=== PATIENT | female | born 1950 | race Caucasian/White ===

== ENCOUNTER → 2019-05-25 15:59 | Outpatient (BNVA) | payer MEDICARE, MEDICAID, SELFPAY | PROVIDERS: PCP Family Medicine; Visit Provider Nurse Practitioner Family | DX: R10.9 Unspecified abdominal pain (principal) | CPT/HCPCS: 81003 ==

== ENCOUNTER → 2020-02-15 09:32 | Outpatient (BNVA) | payer MEDICARE, MEDICAID, SELFPAY | PROVIDERS: PCP Nurse Practitioner Family; Visit Provider Nurse Practitioner Family | DX: E05.90 Thyrotoxicosis, unspecified without thyrotoxic crisis or storm (principal); E55.9 Vitamin D deficiency, unspecified; K21.9 Gastro-esophageal reflux disease without esophagitis | CPT/HCPCS: 80053; 80061; 82306; 84439; 84443; 85025 ==

== ENCOUNTER 2020-06-08 15:18 | Emergency (ER) | payer MEDICARE, MEDICAID, SELFPAY ==
--- NOTE | 2020-06-08 15:24 | CTR_ITS ---
PROCEDURE INFORMATION: Exam: CT Abdomen And Pelvis With Contrast Exam date and time: 06/08/2020 5:05 PM Age: 69 years old Clinical indication: Abdominal pain; Prior surgery; Surgery type: Gb, appy, hyst; Additional info: Abd pain TECHNIQUE: Imaging protocol: Computed tomography of the abdomen and pelvis with contrast. Radiation optimization: All CT scans at this facility use at least one of these dose optimization techniques: automated exposure control; mA and/or kV adjustment per patient size (includes targeted exams where dose is matched to clinical indication); or iterative reconstruction. Contrast material: OMNI 300; Contrast volume: 95 ml; Contrast route: INTRAVENOUS (IV); COMPARISON: CT abdomen pelvis w con* [id number] 12/25/2018 1:15 PM RADIATION DOSE METRICS: Total DLP (mGy-cm): 1415.02 FINDINGS: Lungs: Scarring in the lung bases. Liver: Normal size and density. No focal mass. Gallbladder and bile ducts: Status post cholecystectomy. No biliary dilatation. Pancreas: No evidence of mass. No ductal dilation. Spleen: No splenomegaly or mass. Adrenal glands: Normal. Kidneys and ureters: No stones or hydronephrosis. No evidence of focal mass. Stomach and bowel: Diverticulosis in the distal colon. No signs of acute diverticulitis. Appendix: No evidence of appendicitis. Intraperitoneal space: No free air. No free fluid or evidence of abscess. Vasculature: Scattered vascular calcifications. Lymph nodes: No lymphadenopathy. Urinary bladder: Normal CT appearance. Reproductive: Status post hysterectomy. Bones/joints: The bones appear demineralized. Moderate degenerative changes of the spine. Soft tissues: Within normal limits. CT/CT abdomen pelvis w con* [id number] IMPRESSION: Distal diverticulosis. No signs of acute diverticulitis. Radiation Dose CTDIVOL = (mGy): DLP = 1415.02 (mGy-cm)
[2020-06-08 15:39] VITALS: BP 126/76; PULSE 95; RESP 18; TEMP 37.1; O2SAT 93; BMI 26.4
[2020-06-08 15:43] VITALS: BP 143/84; PULSE 101; RESP 20; O2SAT 93
--- NOTE | 2020-06-08 16:07 | W.ED.ABDPA2 ---
HPI - Abdominal Pain General: Chief Complaint: Abdominal Pain Stated Complaint: Stomach pain, sent over for CT from [facility] Time Seen by Provider: 06/08/20 15:56 Source: patient Mode of arrival: ambulatory Limitations: no limitations History of Present Illness: HPI narrative: Xhioe-[id number]-paf female states she has been having abdominal pain along with nausea over the last month. States is been much worse over the last week. Patient was seen by her PCP was sent her here for CT of her abdomen. Patient is concerned she may have a small bowel obstruction. She has been having normal bowel movements and states she had a bowel movement this morning. She had multiple surgeries in the past including appendectomy hysterectomy and cholecystectomy. She denies any fevers. Denies any worsening improving factors. MD elicited complaint: abdominal pain Associated Symptoms: Reports nausea; Denies chills, dysuria and fever(s) Review of Systems Const: Denies: fever(s), chills, body aches or change in appetite Eyes: Denies: blurry vision or eye discomfort ENMT: Denies: throat pain or dental pain Card: Denies: chest pain Resp: Denies: dyspnea GI: Reports: abdominal pain and nausea : Denies: dysuria Musc: Denies: neck pain or back pain Skin/Breast: Denies: rash Neuro: Denies: headache(s) Psych: Denies: depression Ritesh/Lymph: Denies: easy bruising All/Imm: Denies: urticaria PFSH ED PFSH: Medical History Enrolled in chronic care management GERD (gastroesophageal reflux disease) Hyperthyroidism Family History Father Cancer Sister Cancer Mother Heart disease Grandmother Heart disease Social History Smoking and tobacco status: former smoker Quit status (tobacco): has quit using tobacco Year quit tobacco: 2000 Former quit date comment: 1 PPD FOR 32 YEARS Alcohol intake: never Physical Exam Const: COMMON NORMALS: no acute distress, patient oriented x3 and healthy appearing HENMT: COMMON NORMALS: normocephalic and atraumatic HEAD & SCALP: normocephalic and atraumatic Eye: COMMON NORMALS: Equal, round and reactive pupils present and EOMs intact bilaterally PUPIL: Yes Equal, round and reactive pupils present Neck/C-Spine: COMMON NORMALS: full ROM and supple Chest: COMMONS NORMALS: normal inspection of the chest and normal palpation of entire chest wall Resp: COMMON NORMALS: normal respiratory effort, No retractions, No use of accessory muscles and clear to auscultation bilaterally AUSCULTATION: clear to auscultation bilaterally Cardio: COMMON NORMALS: regular rate, regular rhythm and No murmurs present (Cardio) RATE: regular rate RHYTHM: regular rhythm GI: COMMON NORMALS: Normal to inspection, nondistended, normoactive bowel sounds present, Soft to palpation, non-tender and no masses PALPATION: Yes Soft to palpation Extremity: COMMON NORMALS: normal to inspection and full ROM Neuro: COMMON NORMALS: patient oriented x3, moves all extremities and no focal motor deficits Psych: COMMON NORMALS: mental status grossly normal, Normal thought process present and cooperative THOUGHT PROCESS: Normal thought process present Skin: COMMON NORMALS: no rashes or lesions noted and no wounds GENERAL SKIN EXAM: no rashes or lesions noted Course Vital Signs: Vital signs: Vital Signs Temperature 98.7 F 06/08/20 15:39 Pulse Rate 100 06/08/20 16:26 Respiratory Rate 18 06/08/20 16:26 Blood Pressure 143/84 06/08/20 16:26 Pulse Oximetry 93 06/08/20 16:26 MDM - Abdominal Pain MDM Narrative: Medical decision making narrative: Sonya presents here with abdominal pain that is been chronic in nature. Her CT scan and blood work here are all normal. Patient feels improved. Abdominal exam at discharge is benign. She has no sign of acute surgical abdomen. She is stable for discharge and is to follow-up with PCP in 3 to 5 days and return if worsening. Lab Data: Labs: Lab Results 06/08/20 06/08/20 06/08/20 Range/Units 16:17 16:17 16:54 WBC 12.2 H (4.0-10.0) 10^3/ uL RBC 4.84 (4.1-5.3) 10^6/u L Hgb 14.1 (11.5-15.3) g/dL Hct 43.3 (37.0-47.0) % MCV 89.5 (81-99) fL MCH 29.1 (28.0-34.0) pg MCHC 32.6 (30.0-36.0) g/dL RDW 13.0 (12.1-15.1) % Plt Count 369 (130-400) 10^3/c mm MPV 9.9 (7.4-10.4) fL Neut % (Auto) 64.7 % Lymph % (Auto) 28.2 % Carver % (Auto) 5.2 % Eos % (Auto) 1.5 % Baso % (Auto) 0.2 % Neut # (Auto) 7.91 H (1.8-7.7) 10^3/u L Lymph # (Auto) 3.4 (0.8-4.8) 10^3/u L Carver # (Auto) 0.6 (0.2-0.9) 10^3/u L Eos # (Auto) 0.2 (0.0-0.8) 10^3/u L Baso # (Auto) 0.0 (0.0-0.1) 10^3/u L Nucleated RBC % (a uto) 0 % Nucleated RBCs # 0.0 /100WBC Sodium 141 (136-145) mmol/L Potassium 4.2 (3.5-5.1) mmol/L Chloride 104 (98-107) mmol/L Carbon Dioxide 25 (22-29) mmol/L Anion Gap 16.2 (5-19) BUN 20 (8-23) mg/dL Creatinine 0.6 (0.5-0.9) mg/dL GFR Calculation 98.8 (90-130) mL/min Glucose 99 (65-115) mg/dL Calculated Osmolal ity 295 (285-295) mOsm/k g Total Bilirubin 0.3 (0.15-1.2) mg/dL AST 18 (0-32) U/L ALT 16 (0-33) U/L Alkaline Phosphata se 79 (35-105) IU/L Total Protein 8.2 (6.6-8.7) g/dL Albumin 4.3 (3.5-5.2) g/dL Globulin 3.9 (1.3-4.6) g/dL Lipase 41 (13-60) U/L Urine Color Yellow (Yellow) Urine Appearance Clear (CLEAR) Urine pH 5 (5-7) Ur Specific Gravit y 1.020 (1.005-1.030) Urine Protein Neg (Negative) Urine Glucose (UA) Norm (Normal) Urine Ketones Negative (Negative) Urine Blood Neg (Negative) Urine Nitrate Negative (Negative) Urine Bilirubin Neg (Negative) Urine Urobilinogen Norm (Negative) mg/dL Ur Leukocyte Janessa ase Trace H (Negative) Urine RBC None (0-2) /hpf Urine WBC 5-10 H (0-5) /hpf Ur Squamous Epith Cells Rare (0-5) /hpf Amorphous Sediment Not Reportable Urine Bacteria Trace (NONE) /hpf Imaging Data ^: CT Abd/Pel: Attestation: I personally reviewed and interpreted this imaging study as follows: Radiologist's impression: [facility] [address] [address] Scan Report Signed Patient: Michelle Cloud Unit #: [id number] : 1950 Age/Sex: 69 / F ADM Date: 06/08/20 Loc: ER Room/Bed: Attending Dr: Ordering Provider/Ordering MD: Chris Arias MD Date of Service: 06/08/20 Procedure(s): CT abdomen pelvis w con* [id number] Accession Number(s): [id number] Report Number: [id number] PROCEDURE INFORMATION: Exam: CT Abdomen And Pelvis With Contrast Exam date and time: 06/08/2020 5:05 PM Age: 69 years old Clinical indication: Abdominal pain; Prior surgery; Surgery type: Gb, appy, hyst; Additional info: Abd pain TECHNIQUE: Imaging protocol: Computed tomography of the abdomen and pelvis with contrast. Radiation optimization: All CT scans at this facility use at least one of these dose optimization techniques: automated exposure control; mA and/or kV adjustment per patient size (includes targeted exams where dose is matched to clinical indication); or iterative reconstruction. Contrast material: OMNI 300; Contrast volume: 95 ml; Contrast route: INTRAVENOUS (IV); COMPARISON: CT abdomen pelvis w con* [id number] 12/25/2018 1:15 PM RADIATION DOSE METRICS: Total DLP (mGy-cm): 1415.02 FINDINGS: Lungs: Scarring in the lung bases. Liver: Normal size and density. No focal mass. Gallbladder and bile ducts: Status post cholecystectomy. No biliary dilatation. Pancreas: No evidence of mass. No ductal dilation. Spleen: No splenomegaly or mass. Adrenal glands: Normal. Kidneys and ureters: No stones or hydronephrosis. No evidence of focal mass. Stomach and bowel: Diverticulosis in the distal colon. No signs of acute diverticulitis. Appendix: No evidence of appendicitis. Intraperitoneal space: No free air. No free fluid or evidence of abscess. Vasculature: Scattered vascular calcifications. Lymph nodes: No lymphadenopathy. Urinary bladder: Normal CT appearance. Reproductive: Status post hysterectomy. Bones/joints: The bones appear demineralized. Moderate degenerative changes of the spine. Soft tissues: Within normal limits. CT/CT abdomen pelvis w con* [id number] IMPRESSION: Distal diverticulosis. No signs of acute diverticulitis. Discharge Plan Discharge Patient Disposition: Home Clinical Impression: Abdominal pain Qualifiers: Abdominal location: generalized Qualified Code(s): R10.84 - Generalized abdominal pain Condition: Stable Prescriptions: No Action cholecalciferol (vitamin D3) 125 mcg (5,000 unit) capsule 125 mcg PO DAILY@0600 RF: 0 All Day Allergy (cetirizine) 10 mg capsule 10 mg PO DAILY@0600 RF: 0 Women's 50 Plus Multivitamin 400 mcg-500 mg calcium-20 mcg tablet 1 tab PO DAILY@0600 RF: 0 omeprazole 40 mg capsule,delayed release(DR/EC) 40 mg PO DAILY@0600 RF: 0 Levo-T 50 mcg tablet 50 mcg PO DAILY@0600 RF: 0 ibuprofen 600 mg tablet 600 mg PO PRN PRN (Reason: Pain) RF: 0 Discharge Orders: Discharge ED (Routine); Ordered 06/08/20 Ordered By: Chris Arias Referrals: Ankita Watson NP [Primary Care Provider] - 1-3 days Discharge Diet: Advance as tolerated Discharge Activity: Resume usual activity Patient Instructions: Abdominal Pain (ED) Coding Level of Care Code ED Manager Of Merchandising for Chg Fwd Exam Comprehensive
[2020-06-08 16:26] VITALS: BP 143/84; PULSE 100; RESP 18; O2SAT 93
[2020-06-08] MEDS: ondansetron 2 mg/ML SDV 2 mL 4 MG IVP (16:27)
[2020-06-08 16:38] LABS: Basophils % 0.2 %; Eosinophils # 0.2 10^3/uL (0.0-0.8); Eosinophils % 1.5 %; Hematocrit 43.3 % (37.0-47.0); Hemoglobin 14.1 g/dL (11.5-15.3); Lymphocytes # 3.4 10^3/uL (0.8-4.8); Lymphocytes % 28.2 %; Mean Corpuscular HGB Conc 32.6 g/dL (30.0-36.0); Mean Corpuscular Hemoglobin 29.1 pg (28.0-34.0); Mean Corpuscular Volume 89.5 fL (81-99); Mean Platelet Volume 9.9 fL (7.4-10.4); Monocytes # 0.6 10^3/uL (0.2-0.9); Monocytes % 5.2 %; Neutrophils # 7.91 10^3/uL (1.8-7.7); Neutrophils % 64.7 %; Nucleated Red Blood Cells % 0 %; Platelet Count 369 10^3/cmm (130-400); Red Blood Count 4.84 10^6/uL (4.1-5.3); White Blood Count 12.2 10^3/uL (4.0-10.0)
[2020-06-08 17:03] LABS: Alanine Aminotransferase 16 U/L (0-33); Albumin Level 4.3 g/dL (3.5-5.2); Alkaline Phosphatase 79 IU/L (35-105); Anion Gap 16.2 (5-19); Aspartate Amino Transferase 18 U/L (0-32); Blood Urea Nitrogen 20 mg/dL (8-23); Carbon Dioxide 25 mmol/L (22-29); Chloride 104 mmol/L (98-107); Creatinine Clr Calc Pharmacy 67.4908; Globulin 3.9 g/dL (1.3-4.6); Glomerular Filtration Rate 98.8 mL/min (90-130); Glucose 99 mg/dL (65-115); Lipase 41 U/L (13-60); Osmolality Calculated 295 mOsm/kg (285-295); Potassium 4.2 mmol/L (3.5-5.1); Sodium 141 mmol/L (136-145); Total Bilirubin 0.3 mg/dL (0.15-1.2); Total Protein 8.2 g/dL (6.6-8.7)
[2020-06-08 17:09] LABS: Add Urine Microscopic? YES; Bilirubin Urine Neg (Negative); Blood Urine Neg (Negative); Glucose Urine UA Norm (Normal); Ketones Urine Negative (Negative); Leukocyte Esterase Urine Trace (Negative); Nitrate Urine Negative (Negative); Protein Urine Neg (Negative); Urine Appearance Clear (CLEAR); Urine Color Yellow (Yellow); Urobilinogen Urine Norm (Negative); pH Urine 5 (5-7)
[2020-06-08] MEDS: iohexol 300 mg/mL 100 mL Btl IV (17:11)
[2020-06-08 17:12] LABS: Add Urine Culture? No; Bacteria Urine TRACE /hpf; Squamous Epithelial Cell Urine RARE /hpf (0-5)
[2020-06-08 17:43] VITALS: BP 146/81; PULSE 92; RESP 16; O2SAT 93
[2020-06-08 18:54] LABS: Calcium 9.4 mg/dL (8.5-10.5)
== END 2020-06-08 17:43 | disposition home or self-care (01) ==
PROVIDERS: Emergency Provider Emergency Medicine; PCP Nurse Practitioner Family
DX: R10.84 Generalized abdominal pain (principal); Z87.891 Personal history of nicotine dependence
CPT/HCPCS: 74177; 80053; 81001; 83690; 85025; 96374; 99284; J2405; Q9967

== ENCOUNTER 2020-06-21 14:08 | Outpatient (CLI) | payer MEDICARE, MEDICAID, SELFPAY ==
--- NOTE | 2020-06-21 14:11 | MM_ITS ---
WS: [id number] Supervising L4 BILATERAL DIGITAL SCREENING MAMMOGRAPHY WITH CAD CLINICAL INFORMATION: SCREENING HISTORY: Screening mammogram. No current complaints. COMPARISON: December 2018, December 2017, July 2017, December 2016, TECHNIQUE: Bilateral CC and MLO views. FINDINGS: The breasts are composed of heterogeneous fibroglandular density tissue, which can limit the detectio n of small underlying mass lesions. No suspicious mass, asymmetry, calcifications, or architectural d istortion. No evidence of malignancy. Biopsy marker left breast MM/[place] [id number] IMPRESSION: BI-RADS: 2-Benign FOLLOW UP: 1 Year Follow-up Recommend return to annual screening mammography.
== END 2020-06-21 14:09 | disposition home or self-care (01) ==
LOC: RADSHAW 14:10
PROVIDERS: PCP Family Medicine; Visit Provider Family Medicine
DX: Z12.31 Encounter for screening mammogram for malignant neoplasm of breast (principal)
CPT/HCPCS: 77067

== ENCOUNTER → 2020-07-13 08:36 | Outpatient (BNVA) | payer MEDICARE, MEDICAID, SELFPAY | PROVIDERS: PCP Family Medicine; Visit Provider Internal Medicine | DX: Z01.812 Encounter for preprocedural laboratory examination (principal); R10.13 Epigastric pain; Z20.822 Contact with and (suspected) exposure to COVID-19 | CPT/HCPCS: 87635 ==

== ENCOUNTER 2020-07-15 08:59 | Outpatient (CLI) | payer MEDICARE, MEDICAID, SELFPAY ==
--- NOTE | 2020-07-15 09:30 | MR_ITS ---
WS: [id number] MRCP (MAGNETIC RESONANCE CHOLANGIOPANCREATOGRAPHY) HISTORY: R10.13 - Epigastric pain COMPARISON: CT 06/08/2020 TECHNIQUE: Multiple sequences are performed to evaluate the intra and extrahepatic ducts. Normal common bile duct diameter measures 4 mm. There is no intrahepatic or extra hepatic duct dilata tion. Pancreatic duct is normal. There are no filling defects in the common bile duct. Pancreatic hea d is normal. Visualized liver and spleen are negative. No ascites. No adrenal mass. No pleural effusion. Prior cho lecystectomy. MR/MR MRCP [id number] IMPRESSION: 1. Normal MRCP. No intrahepatic or extra hepatic duct dilatation. 2. Prior cholecystectomy.
== END 2020-07-15 09:00 | disposition home or self-care (01) ==
LOC: RADSHAW 09:00
PROVIDERS: PCP Family Medicine; Visit Provider Internal Medicine
DX: R10.13 Epigastric pain (principal); Z90.49 Acquired absence of other specified parts of digestive tract
CPT/HCPCS: 74181

== ENCOUNTER 2020-07-18 09:07 | Day surgery (SDC) | payer MEDICARE, MEDICAID, SELFPAY ==
[2020-07-15 13:30] VITALS: BMI 25.2
--- NOTE | 2020-07-18 09:08 | W.PM.OPSFHP ---
Same Day Surgery H&P Indication for Procedure/HPI DATE OF PROCEDURE: July 18, 2020 CHIEF COMPLAINT/INDICATIONFOR SURGICAL PROCEDURE: Postprandial epigastric pain PREOP DIAGNOSIS: Postprandial epigastric pain PLANNED PROCEDRUE: Operation Date: 07/18/20 10:45 Proposed Procedures p EGD 00984 r10.13(Not Applicable) - Dax Coffman MD Medications/Allergies* Home Medications Medication Instructions Recorded Confirmed Type cetirizine 10 mg capsule 10 mg PO DAILY@0600 cap 05/25/19 07/15/20 History cholecalciferol (vitamin D3) 125 125 mcg PO DAILY@0600 04/20/20 07/15/20 History mcg (5,000 unit) capsule nmzgazim-abn-hwssy ac 400 1 tab PO DAILY@0600 05/23/20 07/15/20 History mcg-calcium carb 500 mg-vit K1 20 mcg tablet ibuprofen 600 mg PO PRN PRN 06/08/20 07/15/20 History levothyroxine [Levo-T] 50 mcg PO DAILY@0600 06/08/20 07/15/20 History omeprazole 40 mg PO DAILY@0600 06/08/20 07/15/20 History Allergies/Adverse Reactions Allergy/AdvReac Type Severity Reaction Status Date / Time naproxen Allergy ALGY-Rash Verified 07/06/20 15:03 umeclidinium Allergy ALGY-Rash Verified 07/06/20 15:03 [From Incruse Ellipta] Pertinent History/Comorbid Conditions* Medical History (Updated 07/06/20 @ 15:54 by Dax Coffman MD) Enrolled in chronic care management GERD (gastroesophageal reflux disease) Hyperthyroidism Family History (Updated 05/25/19 @ 12:29 by Sabra Zelaya LPN) Heart disease Mother Grandmother Cancer Father Sister Social History Smoking and tobacco status: former smoker Quit status (tobacco): has quit using tobacco Year quit tobacco: 2000 Former quit date comment: 1 PPD FOR 32 YEARS Alcohol intake: never Pertinent Exam Findings alert, oriented x 3, clear to auscultation bilaterally, regular rate & rhythm and procedure specific exam findings Recommendations Surgery/Procedure today Coding Level of Care Code Acute Social Contact Worker for Ulisses Fraire
--- NOTE | 2020-07-18 09:26 | ANES.PREANE2 ---
Pre-Anesthetic Assessment Pre-Anesthetic Assessment: Height/Weight: Height 1.7 m Weight 73.028 kg Preop Diagnosis: Postprandial epigastric pain Proposed Procedure: Operation Date: 07/18/20 10:45 Proposed Procedures p EGD 14027 r10.13(Not Applicable) - Dax Coffman MD Was Beta Mary taken within 24 hours: N/A Was Clonidine taken within 24 hours: N/A Social: Social History: No alcohol and No tobacco Exam: Pre-Anes Outpt Exam: alert, oriented x 3, clear to auscultation bilaterally and regular rate & rhythm Airway: Submandibular: WNL Cervical ROM: WNL MP: 2 Dentition: False GI: GI: GERD Metabolic: Metabolic: Thyroid Anesthetic Plan: ASA status: 3 Anesthesia: MAC Risk of > 500 ml blood loss (7ml/kg in children): No PFSH Anesthesia PFSH: Medical History Enrolled in chronic care management GERD (gastroesophageal reflux disease) Hyperthyroidism Family History Father Cancer Sister Cancer Mother Heart disease Grandmother Heart disease Social History Smoking and tobacco status: former smoker Quit status (tobacco): has quit using tobacco Year quit tobacco: 2000 Former quit date comment: 1 PPD FOR 32 YEARS Alcohol intake: never Data Anesthesia Cardiac Studies: No Data to Display
[2020-07-18 09:43] VITALS: BP 133/80; PULSE 85; RESP 22; TEMP 36.6; O2SAT 94
[2020-07-18] MEDS: sodium chloride 0.9% 1,000 ML 30 ML IV (09:57)
[2020-07-18 11:58] VITALS: BP 113/65; PULSE 71; RESP 16; TEMP 36.6; O2SAT 91
--- NOTE | 2020-07-18 14:49 | ANE.PACU2 ---
Inpatient post-anesthesia follow up: Airway intact: Yes Vital signs: Temperature 97.8 F Pulse Rate 71 Respiratory Rate 16 Blood Pressure 113/65 Pulse Oximetry 91 Oxygen Delivery Me thod Room Air Oxygen Flow Rate Fraction of Inspir ed Oxygen Hydration adequate: Yes Nausea and vomiting: No Pain level: 1 Mental status: Baseline
[2020-07-19 12:15] LABS: H. Pylori / CLO Test Negative
== END 2020-07-18 12:29 | disposition home or self-care (01) ==
PROVIDERS: PCP Family Medicine; Visit Provider Internal Medicine
PROC: 0DJ08ZZ Inspection of Upper Intestinal Tract, Via Natural or Artificial Opening Endoscopic (ICD-10-PCS; CPT 43235; principal; 2020-07-18 10:45)
DX: R10.13 Epigastric pain (principal); K22.70 Barrett's esophagus without dysplasia; K29.70 Gastritis, unspecified, without bleeding; K21.9 Gastro-esophageal reflux disease without esophagitis; E03.9 Hypothyroidism, unspecified; Z87.891 Personal history of nicotine dependence
CPT/HCPCS: 43239; 87077; 88305; 96360; 96361; J2704; J7030

== ENCOUNTER → 2021-03-01 10:00 | Outpatient (BNVA) | payer MEDICARE, MEDICAID, SELFPAY | PROVIDERS: PCP Family Medicine; Visit Provider Family Medicine | DX: E05.90 Thyrotoxicosis, unspecified without thyrotoxic crisis or storm (principal); E78.1 Pure hyperglyceridemia | CPT/HCPCS: 80053; 80061; 84439; 84443 ==

== ENCOUNTER → 2021-05-15 10:36 | Outpatient (BNVA) | payer MEDICARE, MEDICAID, SELFPAY | PROVIDERS: PCP Family Medicine; Visit Provider Nurse Practitioner Family | DX: R11.10 Vomiting, unspecified (principal); R42 Dizziness and giddiness | CPT/HCPCS: 80053; 85025 ==

== ENCOUNTER 2021-05-19 10:57 | Emergency (ER) | payer MEDICARE, MEDICAID, SELFPAY ==
[2021-05-19 11:06] VITALS: BP 134/77; PULSE 71; RESP 18; TEMP 36.3; O2SAT 95; BMI 24.1
[2021-05-19 11:21] VITALS: BP 169/80; PULSE 69; RESP 20; O2SAT 97
--- NOTE | 2021-05-19 11:33 | CT_ITS ---
WS: [id number] CT HEAD TECHNIQUE: Noncontrast CT of the head obtained from the skullbase to the vertex. CLINICAL INFORMATION: vertigo COMPARISON: None. DLP: 697.[address] scans at [facility] use at least one of these dose optimization techniques: automated e xposure control; mA and/or kV adjustment per patient size (includes targeted exams where dose is matc hed to clinical indication); or iterative reconstruction. FINDINGS: No evidence of intracranial hemorrhage or mass effect. Ventricular system and basal cisterns are zarate nt. Mild small vessel changes more prominent in the LEFT frontal periventricular white matter. Mild p arenchymal volume loss. Chronic lacunar infarct RIGHT thalamus and RIGHT caudate. No extra-axial flui d collections. No evidence of mass or mass effect. Paranasal sinuses and mastoid air cells are well aerated. .Normal visualized soft tissues. CT/CT head wo con* [id number] IMPRESSION: 1. No evidence of intracranial hemorrhage or mass effect. 2. Mild small vessel changes. Mild parenchymal volume loss. 3. Chronic lacunar infarct RIGHT thalamus and RIGHT caudate. 4. No acute intracranial findings.
--- NOTE | 2021-05-19 11:35 | W.ED.DIZZY ---
HPI - Dizziness General: Chief Complaint: Dizziness Stated Complaint: N/V dizziness Time Seen by Provider: 05/19/21 11:18 Source: patient Mode of arrival: ambulatory Limitations: no limitations History of Present Illness: HPI Narrative: 70-year-old female presents emergency room complaining of vertiginous symptoms. Symptoms been present for the entire week. She seen her primary care doctor earlier in the week and was given meclizine for positional vertigo. She states has not really helped very much. Almost any head movement precipitates vertiginous symptoms she remains still does get better. She denies any chest pain denies any shortness of breath denies any abdominal discomfort no dysuria urgency frequency no other symptoms no flulike symptoms. No history of head trauma no ear pain no ear drainage. No sore throat. MD elicited complaint: vertigo Pertinent past history: BPPV Onset (ago): day(s) (5) Timing: gradual onset Severity: moderate Description: room spinning Context: change in body position Exacerbating factors: change in body position (Movement of the head) Relieving factors: nothing Associated symptoms: Denies abnormal vaginal bleeding, change in hearing, chest pain, chills, cough, diaphoresis, ear discharge, ear pressure, fevers/chills, headache(s), malaise, nausea, nasal congestion, palpitations, rash, short of breath, syncope, tinnitus, vomiting or weakness Associated neuro symptoms: Deny confusion, difficulty speaking, dysphagia, diplopia, extremity weakness, facial numbness, facial weakness, gait changes, numbness in extremities or visual changes Review of Systems Const: Denies: chills, malaise or diaphoresis ENMT: Denies: ear discharge, change in hearing, tinnitus or nasal congestion Card: Denies: chest pain, palpitations or syncope Resp: Denies: dyspnea, productive cough or non-productive cough GI: Denies: nausea, vomiting or dysphagia : Denies: flank pain, difficulty voiding, dysuria, urinary frequency or urinary urgency Skin/Breast: Denies: rash or pruritus Neuro: Denies: headache(s), numbness in extremities or confusion PFS ED PFSH: Medical History Enrolled in chronic care management GERD (gastroesophageal reflux disease) Hyperthyroidism Family History Father Cancer Sister Cancer Mother Heart disease Grandmother Heart disease Social History Smoking and tobacco status: former smoker Quit status (tobacco): has quit using tobacco Year quit tobacco: 2000 Former quit date comment: 1 PPD FOR 32 YEARS Alcohol intake: never Physical Exam Const: COMMON NORMALS: no acute distress GENERAL APPEARANCE: cooperative and comfortable ORIENTATION/CONSCIOUSNESS: Yes awake, Yes oriented to person, Yes oriented to place and Yes oriented to time HENMT: COMMON NORMALS: normocephalic, atraumatic and hearing grossly normal bilaterally HEAD & SCALP: normocephalic and atraumatic Neck/C-Spine: COMMON NORMALS: no JVD Resp: COMMON NORMALS: normal respiratory effort, No retractions, No use of accessory muscles and clear to auscultation bilaterally AUSCULTATION: clear to auscultation bilaterally Cardio: COMMON NORMALS: no JVD, regular rate, regular rhythm and No murmurs present (Cardio) RATE: regular rate RHYTHM: regular rhythm GI: COMMON NORMALS: Soft to palpation and No hepatosplenomegaly present AUSCULTATION: Yes normoactive bowel sounds PALPATION: Yes Soft to palpation, No Tenderness to palpation present (GI), No Guarding due to palpation present (GI) and Yes No hepatosplenomegaly present Extremity: COMMON NORMALS: normal to inspection, capillary refill normal, no clubbing, cyanosis or edema, no calf tenderness and no pedal edema Neuro: SENSORIUM/ORIENTATION: Yes oriented to person, Yes oriented to place and Yes oriented to time Skin: COMMON NORMALS: no rashes or lesions noted GENERAL SKIN EXAM: no rashes or lesions noted Course Vital Signs: Vital signs: Vital Signs Temperature 97.3 F L 05/19/21 11:06 Pulse Rate 71 05/19/21 13:47 Respiratory Rate 18 05/19/21 13:47 Blood Pressure 128/66 05/19/21 13:47 Pulse Oximetry 95 05/19/21 13:47 MDM - Dizziness Medical Decision Making Symptoms reproducible movement of the head. Significant relief with use of Ativan. Patient is feeling much better we will discharge her home with Ativan to use as needed follow-up with primary care. If she does have persistent symptoms recommend following up with PCP and considering vestibular rehab through physical therapy Medical Records I reviewed the patient's medical records. Lab Data I reviewed the patient's lab results. : 05/19/21 12:00 05/19/21 12:[address] 05/19/21 11:33 IMPRESSION: 1. No evidence of intracranial hemorrhage or mass effect. 2. Mild small vessel changes. Mild parenchymal volume loss. 3. Chronic lacunar infarct RIGHT thalamus and RIGHT caudate. 4. No acute intracranial findings. Laboratory Results WBC 9.8 10^3/uL (4.0-10.0) 05/19/21 12:00 RBC 5.22 10^6/uL (4.1-5.3) 05/19/21 12:00 Hgb 15.2 g/dL (11.5-15.3) 05/19/21 12:00 Hct 45.5 % (37.0-47.0) 05/19/21 12:00 MCV 87.2 fl (81-99) 05/19/21 12:00 MCH 29.1 pg (28.0-34.0) 05/19/21 12:00 MCHC 33.4 g/dL (30.0-36.0) 05/19/21 12:00 RDW 13.5 % (12.1-15.1) 05/19/21 12:00 Plt Count 342 10^3/cmm (130-400) 05/19/21 12:00 MPV 9.8 fL (7.4-10.4) 05/19/21 12:00 Neut % (Auto) 69.6 % 05/19/21 12:00 Lymph % (Auto) 24.7 % 05/19/21 12:00 [place] % (Auto) 4.8 % 05/19/21 12:00 Eos % (Auto) 0.6 % 05/19/21 12:00 Baso % (Auto) 0.1 % 05/19/21 12:00 Neut # (Auto) 6.81 10^3/uL (1.8-7.7) 05/19/21 12:00 Lymph # (Auto) 2.4 10^3/uL (0.8-4.8) 05/19/21 12:00 [place] # (Auto) 0.5 10^3/uL (0.2-0.9) 05/19/21 12:00 Eos # (Auto) 0.1 10^3/uL (0.0-0.8) 05/19/21 12:00 Baso # (Auto) 0.0 10^3/uL (0.0-0.1) 05/19/21 12:00 Nucleated RBC % (auto) 0 % 05/19/21 12:00 Nucleated RBCs # 0.0 /100WBC 05/19/21 12:00 Sodium 139 mmol/L (136-145) 05/19/21 12:00 Potassium 4.3 mmol/L (3.5-5.1) 05/19/21 12:00 Chloride 102 mmol/L (98-107) 05/19/21 12:00 Carbon Dioxide 27 mmol/L (22-29) 05/19/21 12:00 Anion Gap 14.3 (5-19) 05/19/21 12:00 BUN 16 mg/dL (8-23) 05/19/21 12:00 Creatinine 0.6 mg/dL (0.5-0.9) 05/19/21 12:00 GFR Calculation Not Reportable 05/19/21 12:00 Glucose 123 mg/dL (65-115) H 05/19/21 12:00 Calculated Osmolality 291 mOsm/kg (285-295) 05/19/21 12:00 Calcium 8.9 mg/dL (8.5-10.5) 05/19/21 12:00 Total Bilirubin 0.6 mg/dL (0.15-1.2) 05/19/21 12:00 AST 17 U/L (0-32) 05/19/21 12:00 ALT 18 U/L (0-33) 05/19/21 12:00 Alkaline Phosphatase 68 IU/L (35-105) 05/19/21 12:00 Total Protein 7.7 g/dL (6.6-8.7) 05/19/21 12:00 Albumin 4.6 g/dL (3.5-5.2) 05/19/21 12:00 Globulin 3.1 g/dL (1.3-4.6) 05/19/21 12:00 Discharge Plan Discharge Patient Disposition: Home Clinical Impression: Benign paroxysmal positional vertigo Condition: Stable Prescriptions: New Ativan 2 mg tablet 2 mg PO Q6H PRN (Reason: dizziness or vertigo) Qty: 20 0RF No Action omeprazole 40 mg capsule,delayed release(DR/EC) 40 mg PO DAILY Qty: 30 11RF meclizine 25 mg tablet 25 mg PO TID PRN (Reason: dizziness) Qty: 30 0RF ondansetron 8 mg tablet,disintegrating 8 mg PO Q8H PRN (Reason: nausea and vomiting) Qty: 20 0RF levothyroxine [Levo-T] 50 mcg tablet 50 mcg PO DAILY Qty: 90 3RF Zyrtec 10 mg Tablet 10 mg PO DAILY 0RF Centrum Complete 18-400 mg-mcg Tablet 1 tab PO DAILY 0RF vit D3-vit D-nutmguian-ltci [id number] oabx-ybu-ct-mg Tablet 1 tab PO DAILY 0RF Discharge Orders: Discharge ED (Routine); Ordered 05/19/21 Ordered By: Christian Benedict Referrals: Juan Jose Marsh DO [Primary Care Provider] - Discharge Diet: Usual diet Discharge Activity: Limit activity as instructed Patient Instructions: Benign Paroxysmal Positional Vertigo (ED), Opioid Safety Coding Level of Care Code ED Flight Engineer Instructor for Orvilleg Fwd Exam Comprehensive NIH stroke score NIHSS Level Of Consciousness - 1a: 0 Level Of Consciousness Questions - 1b: Both Correct Level Of Consciousness Commands - 1c: Both Correct Best Gaze - 2: Normal Visual Dow - 3: No Visual Loss Facial Palsy - 4: Normal Motor Arm Right - 5: No Drift Motor Arm Left - 5: No Drift Motor Leg Right - 6: No Drift Motor Leg Left - 6: No Drift Limb Ataxia - 7: Absent Sensory - 8: Normal Best Language - 9: No Aphasia Dysarthia - 10: Normal Extinction And Inattention - 11: 0 Score Total Score: 0
[2021-05-19] MEDS: LORazepam 2 mg Tablet PO (11:40)
[2021-05-19 12:02] VITALS: BP 132/65; PULSE 72; RESP 20; O2SAT 94
[2021-05-19 12:05] LABS: Basophils % 0.1 %; Eosinophils # 0.1 10^3/uL (0.0-0.8); Eosinophils % 0.6 %; Hematocrit 45.5 % (37.0-47.0); Hemoglobin 15.2 g/dL (11.5-15.3); Lymphocytes # 2.4 10^3/uL (0.8-4.8); Lymphocytes % 24.7 %; Mean Corpuscular HGB Conc 33.4 g/dL (30.0-36.0); Mean Corpuscular Hemoglobin 29.1 pg (28.0-34.0); Mean Corpuscular Volume 87.2 fl (81-99); Mean Platelet Volume 9.8 fL (7.4-10.4); Monocytes # 0.5 10^3/uL (0.2-0.9); Monocytes % 4.8 %; Neutrophils # 6.81 10^3/uL (1.8-7.7); Neutrophils % 69.6 %; Nucleated Red Blood Cells % 0 %; Platelet Count 342 10^3/cmm (130-400); Red Blood Count 5.22 10^6/uL (4.1-5.3); Red Cell Distribution Width 13.5 % (12.1-15.1); White Blood Count 9.8 10^3/uL (4.0-10.0)
[2021-05-19 12:28] LABS: Alanine Aminotransferase 18 U/L (0-33); Albumin Level 4.6 g/dL (3.5-5.2); Alkaline Phosphatase 68 IU/L (35-105); Anion Gap 14.3 (5-19); Aspartate Amino Transferase 17 U/L (0-32); Blood Urea Nitrogen 16 mg/dL (8-23); Calcium 8.9 mg/dL (8.5-10.5); Carbon Dioxide 27 mmol/L (22-29); Chloride 102 mmol/L (98-107); Globulin 3.1 g/dL (1.3-4.6); Glucose 123 mg/dL (65-115); Osmolality Calculated 291 mOsm/kg (285-295); Potassium 4.3 mmol/L (3.5-5.1); Sodium 139 mmol/L (136-145); Total Bilirubin 0.6 mg/dL (0.15-1.2); Total Protein 7.7 g/dL (6.6-8.7)
[2021-05-19 13:47] VITALS: BP 128/66; PULSE 71; RESP 18; O2SAT 95
== END 2021-05-19 13:49 | disposition home or self-care (01) ==
PROVIDERS: Emergency Provider Family Medicine; PCP Family Medicine
DX: H81.10 Benign paroxysmal vertigo, unspecified ear (principal); Z87.891 Personal history of nicotine dependence
CPT/HCPCS: 70450; 80053; 85025; 99283

== ENCOUNTER 2021-07-03 06:21 | Day surgery (SDC) | payer MEDICARE, MEDICAID, SELFPAY ==
[2021-06-29 12:18] VITALS: BMI 24.3
[2021-07-03 06:32] VITALS: BP 132/77; PULSE 83; RESP 18; TEMP 36.1; O2SAT 97
[2021-07-03] MEDS: sodium chloride 0.9% 1,000 ML 30 ML IV (06:37)
--- NOTE | 2021-07-03 06:53 | ANES.PREANE2 ---
Pre-Anesthetic Assessment Height/Weight: Height 1.7 m Weight 70.307 kg Temp Pulse Resp BP Pulse Ox 97 F L 83 18 132/77 97 07/03/21 06:32 07/03/21 06:32 07/03/21 06:32 07/03/21 06:32 07/03/21 06:32 Preop Diagnosis: pain Operation Date: 07/03/21 07:30 Proposed Procedures p Colonoscopy 83832(Not Applicable) - Dax Coffman MD Familial anesthetic complications: PONV Last intake: Intake Last Liquid Date 07/02/21 Last Liquid Time 21:00 Last Solid Date 07/01/21 Last Solid Time 17:00 Social No alcohol and No tobacco Airway Submandibular: within normal limits Cervical ROM: within normal limits Mallampati: Class II Dentition: false Pulmonary Chronic Obstructive Pulmonary Disease CV/HEM None reported None reported Hepatic None reported Metabolic Thyroid Disease [facility] [place] None reported Neuropsych None reported Anesthetic Plan ASA status: 2 Anesthesia: MAC Medications/Allergies Home Medications Medication Instructions Recorded Confirmed Last Taken Type omeprazole 40 mg capsule,delayed 40 mg PO DAILY #30 cap 08/08/20 06/29/21 07/02/21 Rx release levothyroxine 50 mcg tablet 50 mcg PO DAILY #90 tab 03/01/21 06/29/21 07/02/21 Rx (Levo-T) cetirizine 10 mg tablet (Zyrtec) 10 mg PO DAILY 05/19/21 06/29/21 07/02/21 History multivitamin-ferrous 1 tab PO DAILY 05/19/21 06/29/21 07/02/21 History fumarate-folic acid 18 mg-400 mcg tablet (Centrum Complete) vitamin D3 500 unit-vit K 500 1 tab PO DAILY 05/19/21 06/29/21 07/02/21 History mcg-berberine 90 mg-hops 370 mg tablet Allergies Allergy/AdvReac Type Severity Reaction Status Date / Time naproxen Allergy ALGY-Rash Verified 06/29/21 12:17 umeclidinium Allergy ALGY-Rash Verified 06/29/21 12:17 [From Incruse Ellipta] Current Medications Generic Name Dose Route Start Last Admin Trade Name Freq PRN Reason Stop Dose Admin Sodium Chloride 1,000 mls @ 30 mls/hr 07/03/21 06:30 07/03/21 06:37 Sodium Chloride 0.9% IV 07/04/21 06:29 30 mls/hr .Q24H CANDIDA Administration PFSH Anesthesia Medical History Enrolled in chronic care management GERD (gastroesophageal reflux disease) Hyperthyroidism Family History Father Cancer Sister Cancer Mother Heart disease Grandmother Heart disease Social History Smoking and tobacco status: former smoker Quit status (tobacco): has quit using tobacco Year quit tobacco: 2000 Former quit date comment: 1 PPD FOR 32 YEARS Alcohol intake: never Data Anesthesia Cardiac Studies: No Data to Display
--- NOTE | 2021-07-03 07:13 | W.PM.OPSFHP ---
Same Day Surgery H&P Indication for Procedure/HPI DATE OF PROCEDURE: July 03, 2021 CHIEF COMPLAINT/INDICATIONFOR SURGICAL PROCEDURE: History of Rodriguez's PREOP DIAGNOSIS: pain PLANNED PROCEDURE: Operation Date: 07/03/21 07:30 Proposed Procedures p Colonoscopy 53852(Not Applicable) - Dax Coffman MD Medications/Allergies* Home Medications Medication Instructions Recorded Confirmed Type cetirizine 10 mg tablet (Zyrtec) 10 mg PO DAILY 05/19/21 06/29/21 History multivitamin-ferrous 1 tab PO DAILY 05/19/21 06/29/21 History fumarate-folic acid 18 mg-400 mcg tablet (Centrum Complete) vitamin D3 500 unit-vit K 500 1 tab PO DAILY 05/19/21 06/29/21 History mcg-berberine 90 mg-hops 370 mg tablet Allergies/Adverse Reactions Allergy/AdvReac Type Severity Reaction Status Date / Time naproxen Allergy ALGY-Rash Verified 06/29/21 12:17 umeclidinium Allergy ALGY-Rash Verified 06/29/21 12:17 [From Incruse Ellipta] Current Medications: Generic Name Dose Route Start Last Admin Trade Name Freq PRN Reason Stop Dose Admin Sodium Chloride 1,000 mls @ 30 mls/hr 07/03/21 06:30 07/03/21 06:37 Sodium Chloride 0.9% IV 07/04/21 06:29 30 mls/hr .Q24H CANDIDA Administration Pertinent History/Comorbid Conditions* Medical History (Updated 05/29/21 @ 11:09 by Juan Jose Marsh DO) Enrolled in chronic care management GERD (gastroesophageal reflux disease) Hyperthyroidism Family History (Updated 05/25/19 @ 12:29 by Sabra Zelaya LPN) Heart disease Mother Grandmother Cancer Father Sister Social History Smoking and tobacco status: former smoker Quit status (tobacco): has quit using tobacco Year quit tobacco: 2000 Former quit date comment: 1 PPD FOR 32 YEARS Alcohol intake: never Pertinent Exam Findings alert, oriented x 3, clear to auscultation bilaterally, regular rate & rhythm, operative site marked and procedure specific exam findings Recommendations Surgery/Procedure today Coding Level of Care Code Acute Advanced Clinical Specialist for Ulisses Fraire
[2021-07-03 08:05] VITALS: BP 136/80; PULSE 80; RESP 14; TEMP 36.4; O2SAT 96
[2021-07-03 08:16] VITALS: BP 131/76; PULSE 77; RESP 16; O2SAT 96
--- NOTE | 2021-07-03 14:29 | ANE.PACU2 ---
Inpatient post-anesthesia follow up: Vital signs: Temperature 97.6 F Pulse Rate 77 Respiratory Rate 16 Blood Pressure 131/76 Pulse Oximetry 96 Oxygen Delivery Me thod Room Air Oxygen Flow Rate Fraction of Inspir ed Oxygen
== END 2021-07-03 08:31 | disposition home or self-care (01) ==
PROVIDERS: PCP Family Medicine; Visit Provider Internal Medicine
PROC: 0DJD8ZZ Inspection of Lower Intestinal Tract, Via Natural or Artificial Opening Endoscopic (ICD-10-PCS; CPT 45378; principal; 2021-07-03 07:30)
DX: R10.13 Epigastric pain (principal); K57.30 Diverticulosis of large intestine without perforation or abscess without bleeding; J44.9 Chronic obstructive pulmonary disease, unspecified; K21.9 Gastro-esophageal reflux disease without esophagitis; E03.9 Hypothyroidism, unspecified; Z87.891 Personal history of nicotine dependence
CPT/HCPCS: 45378; J2704; J7030

== ENCOUNTER 2021-07-24 13:30 | Outpatient (CLI) | payer MEDICARE, MEDICAID, SELFPAY ==
--- NOTE | 2021-07-24 14:01 | MM_ITS ---
WS: [id number] BILATERAL 3D TOMOSYNTHESIS DIGITAL SCREENING MAMMOGRAPHY WITH CAD CLINICAL INFORMATION: SCREENING HISTORY: Screening mammogram. No current complaints. COMPARISON: June 21, 2020 TECHNIQUE: Bilateral CC and MLO views. FINDINGS: Scattered fibroglandular densities bilaterally. Biopsy marker LEFT breast. No suspicious focal mass, asymmetry, calcifications, or architectural distortion. No evidence of malignancy. MM/[place] [id number] IMPRESSION: BI-RADS: 2-Benign FOLLOW UP: 1 Year Follow-up Recommend return to annual screening mammography.
== END 2021-07-24 13:31 | disposition home or self-care (01) ==
LOC: RAD 13:33
PROVIDERS: PCP Family Medicine; Visit Provider Family Medicine
DX: Z12.31 Encounter for screening mammogram for malignant neoplasm of breast (principal)
CPT/HCPCS: 77063; 77067

== ENCOUNTER 2022-01-22 06:00 | Outpatient (RCR) | payer MEDICARE, MEDICAID, SELFPAY | END 2022-02-14 23:59 | disposition home or self-care (01) | LOC: GPT 06:00 | PROVIDERS: PCP Family Medicine; Visit Provider Nurse Practitioner Occupational Health | DX: M54.2 Cervicalgia (principal) | CPT/HCPCS: 97110; 97140; 97161 ==

== ENCOUNTER 2022-02-15 06:00 | Outpatient (RCR) | payer MEDICARE, MEDICAID, SELFPAY | END 2022-03-13 23:59 | disposition home or self-care (01) | LOC: GPT 06:00 | PROVIDERS: PCP Family Medicine; Visit Provider Nurse Practitioner Occupational Health | DX: M54.2 Cervicalgia (principal) | CPT/HCPCS: 97110; 97112; 97140; 97530; G0283 ==

== ENCOUNTER → 2022-04-04 10:50 | Outpatient (BNVA) | payer MEDICARE, MEDICAID, SELFPAY | PROVIDERS: PCP Family Medicine; Visit Provider Podiatrist Foot & Ankle Surgery | DX: B07.0 Plantar wart (principal); L60.0 Ingrowing nail; L60.3 Nail dystrophy; L08.9 Local infection of the skin and subcutaneous tissue, unspecified | CPT/HCPCS: 11730; 17110; 73630; 99204 ==

== ENCOUNTER → 2022-04-20 11:14 | Outpatient (BNVA) | payer MEDICARE, MEDICAID, SELFPAY | PROVIDERS: PCP Family Medicine; Visit Provider Podiatrist Foot & Ankle Surgery | DX: L60.0 Ingrowing nail (principal); L60.3 Nail dystrophy; B07.0 Plantar wart | CPT/HCPCS: 99213 ==

== ENCOUNTER → 2022-09-11 10:50 | Outpatient (BNVA) | payer MEDICARE, MEDICAID, SELFPAY | PROVIDERS: PCP Nurse Practitioner; Referring Provider Nurse Practitioner; Visit Provider Specialist | DX: G25.0 Essential tremor (principal); J44.9 Chronic obstructive pulmonary disease, unspecified; Z87.891 Personal history of nicotine dependence | CPT/HCPCS: 99203 ==

== ENCOUNTER → 2023-12-30 15:32 | Outpatient (BNVA) | payer MEDICARE, MEDICAID, SELFPAY | PROVIDERS: PCP Nurse Practitioner; Visit Provider Podiatrist Foot & Ankle Surgery | DX: L60.0 Ingrowing nail (principal) | CPT/HCPCS: 99213 ==

== ENCOUNTER 2024-03-04 09:05 | Outpatient (CLI) | payer MEDICARE, MEDICAID, SELFPAY ==
--- NOTE | 2024-03-04 09:20 | MM_ITS ---
WS: [id number] Bilateral screening 3D tomosynthesis digital mammogram, 03/04/2024 9:23 AM Clinical Data: SCREENING Comparison: 07/24/2021, 06/21/2020, 01/13/2019, 12/31/2017, 07/23/2017, 01/23/2017, 12/31/2016, 12/18/2016, , 11/17/2014, 06/02/2013, 04/23/2012, 02/16/2011, 02/06/2010, 01/26/2009, 12/08/2007, 11/28/2007. Findings: No spiculated masses or clustered calcifications are seen. There are no secondary signs of carcinoma . There is a biopsy clip in the central portion of the left breast. MM/MM scr BI tomosynthesis [id number] Impression: Negative bilateral mammogram unchanged. Recommend annual screening mammograms. BIRADS: 1 - Negative. FOLLOW UP: 1 Year Follow-up DENSITY: There are scattered areas of fibroglandular density. The CAD piece work checker was used
== END 2024-03-04 09:06 | disposition home or self-care (01) ==
PROVIDERS: PCP Nurse Practitioner; Visit Provider Nurse Practitioner
DX: Z12.31 Encounter for screening mammogram for malignant neoplasm of breast (principal); Z97.8 Presence of other specified devices; R92.323 Mammographic fibroglandular density, bilateral breasts
CPT/HCPCS: 77063; 77067

== ENCOUNTER 2024-03-18 06:00 | Outpatient (RCR) | payer MEDICARE, MEDICAID, SELFPAY | END 2024-04-17 23:59 | disposition home or self-care (01) | LOC: GST 06:00 | PROVIDERS: PCP Nurse Practitioner; Visit Provider Nurse Practitioner | DX: R49.8 Other voice and resonance disorders (principal) | CPT/HCPCS: 92524 ==

== ENCOUNTER 2024-05-16 06:30 | Outpatient (RCR) | payer MEDICARE, MEDICAID, SELFPAY | END 2024-06-15 23:59 | disposition home or self-care (01) | LOC: GST 06:30 | PROVIDERS: PCP Nurse Practitioner; Visit Provider Nurse Practitioner | DX: R49.9 Unspecified voice and resonance disorder (principal) | CPT/HCPCS: 92507 ==

== ENCOUNTER → 2024-05-27 11:39 | Outpatient (BNVA) | payer MEDICARE, MEDICAID, SELFPAY | PROVIDERS: PCP Nurse Practitioner; Visit Provider Internal Medicine Cardiovascular Disease | DX: I51.7 Cardiomegaly (principal); J44.9 Chronic obstructive pulmonary disease, unspecified; I77.810 Thoracic aortic ectasia | CPT/HCPCS: 99214 ==

== ENCOUNTER 2024-06-16 05:00 | Outpatient (RCR) | payer MEDICARE, MEDICAID, SELFPAY | END 2024-07-15 23:59 | disposition home or self-care (01) | LOC: GST 05:00 | PROVIDERS: PCP Nurse Practitioner; Visit Provider Nurse Practitioner | DX: R49.9 Unspecified voice and resonance disorder (principal) | CPT/HCPCS: 92507 ==

== ENCOUNTER 2024-06-26 10:51 | Outpatient (CLI) | payer MEDICARE, MEDICAID, SELFPAY ==
--- NOTE | 2024-06-26 11:15 | USCV_ITS ---
Pedro Luis Michelle Age: 74 Gender: F : 1950 Exam Date: 06/26/2024 11:21 Ordering Phys: Sophie Wolfe MD ([email or web address]) Technologist: Kelby Albarran Exam Location: [facility] [place] Indication: sob BP: 112 / 64 HR: 77 Rhythm: Sinus Technical Quality: Adequate MEASUREMENTS (Male / Female) Normal Values 2D ECHO LV Diastolic Diameter PLAX 4.2 cm 4.2 - 5.9 / 3.9 - 5.3 cm IVS Diastolic Thickness 1.1 cm 0.6 - 1.0 / 0.6 - 0.9 cm IVS Systolic Thickness 1.3 cm LVPW Diastolic Thickness 1.3 cm 0.6 - 1.0 / 0.6 - 0.9 cm LVPW Systolic Thickness 2.2 cm LVOT Diameter 2.1 cm LV Ejection Fraction 2D Teich 68.3 % LV Ejection Fraction MOD 4C 70.3 % LV Ejection Fraction MOD 2C 71.8 % LV Ejection Fraction 2C AL 72.4 % LA Diameter 3.0 cm RA Systolic Volume 4C AL 22.0 ml RA Systolic Volume 4C MOD 21.6 ml LA Sys Volume AL 24.8 cm cubed LA Sys Volume Index AL 13.3 cm cubed/m squared Aorta at Sinotubular Diameter 2.6 cm IVC Diameter 1.9 cm M-MODE LA Ao Ratio MM 1.1 AV Cusp Separation MM 2.1 cm DOPPLER AV Peak Velocity 110.0 cm/s LVOT Peak Velocity 84.0 cm/s AV Area Cont Eq vti 2.6 cm squared AV Area Cont Eq pk 2.6 cm squared MV Peak Velocity 106.0 cm/s MV Area PHT 4.3 cm squared Mitral E to A Ratio 0.8 TV Peak Velocity 270.3 cm/s TR Peak Velocity 314.0 cm/s TR Peak Gradient 39.4 mmHg TR Mean Velocity 245.0 cm/s TR Mean Gradient 27.2 mmHg TR Velocity Time Integral 80.8 cm PV Peak Velocity 67.7 cm/s RV Ejection Time 0.3 s FINDINGS Left Ventricle Normal left ventricular size, systolic function and wall thickness, with no regional wall motion abnormalities. Left ventricular ejection fraction is estimated at 60 %. Grade I/IV diastolic dysfunction (abnormal relaxation filling pattern), normal to mildly elevated filling pressures. Right Ventricle The right ventricle is normal in size and function. Right Atrium The right atrium is normal in size. Left Atrium The left atrium is normal in size. Mitral Valve Mildly thickened mitral valve. No mitral valve stenosis. Mild mitral valve regurgitation. Aortic Valve Mild aortic valve calcification. No aortic valve stenosis. Trace aortic valve regurgitation. Tricuspid Valve Mild tricuspid valve regurgitation. Pulmonic Valve Structurally normal pulmonic valve without significant stenosis. There is no pulmonic regurgitation. Pericardium Normal pericardium without effusion. Aorta Normal ascending aorta dimension. IVC The inferior vena cava appears normal. CONCLUSIONS Normal left ventricular size, systolic function and wall thickness, with no regional wall motion abnormalities. Left ventricular ejection fraction is estimated at 60 %. Grade I/IV diastolic dysfunction (abnormal relaxation filling pattern), normal to mildly elevated filling pressures. Mildly thickened mitral valve. No mitral valve stenosis. Mild mitral valve regurgitation. There is no pericardial effusion. Right atrial pressure is around 5 mm of mercury. Sophie Wolfe MD (Electronically Signed) Final Date: 09 July 2024 19:56 S
== END 2024-06-26 10:52 | disposition home or self-care (01) ==
PROVIDERS: PCP Nurse Practitioner; Visit Provider Internal Medicine Cardiovascular Disease
DX: R06.02 Shortness of breath (principal); I42.9 Cardiomyopathy, unspecified; R93.1 Abnormal findings on diagnostic imaging of heart and coronary circulation; I34.0 Nonrheumatic mitral (valve) insufficiency; I35.8 Other nonrheumatic aortic valve disorders; I07.1 Rheumatic tricuspid insufficiency
CPT/HCPCS: 93306

== ENCOUNTER 2024-07-16 06:00 | Outpatient (RCR) | payer MEDICARE, MEDICAID, SELFPAY | END 2024-08-15 23:59 | disposition home or self-care (01) | LOC: GST 06:00 | PROVIDERS: PCP Nurse Practitioner; Visit Provider Nurse Practitioner | DX: R49.9 Unspecified voice and resonance disorder (principal) | CPT/HCPCS: 92507 ==

== ENCOUNTER → 2024-10-11 14:37 | Outpatient (BNVA) | payer MEDICARE, MEDICAID, SELFPAY | PROVIDERS: PCP Nurse Practitioner; Visit Provider Emergency Medicine | DX: J02.9 Acute pharyngitis, unspecified (principal) | CPT/HCPCS: 87071; 87426; 87880 ==

== ENCOUNTER 2024-11-16 05:00 | Outpatient (RCR) | payer MEDICARE, MEDICAID, SELFPAY | END 2024-12-15 23:59 | disposition home or self-care (01) | LOC: GPT 05:00 | PROVIDERS: Visit Provider Orthopaedic Surgery | DX: M54.9 Dorsalgia, unspecified (principal) | CPT/HCPCS: 97140; 97161 ==

== ENCOUNTER → 2024-11-26 14:19 | Outpatient (BNVA) | payer MEDICARE, MEDICAID, SELFPAY | PROVIDERS: PCP Nurse Practitioner; Visit Provider Orthopaedic Surgery | DX: M54.9 Dorsalgia, unspecified (principal) | CPT/HCPCS: 72110; 99203 ==

== ENCOUNTER 2024-12-29 08:42 | Outpatient (RCR) | payer MEDICARE, MEDICAID, SELFPAY | END 2025-01-15 23:59 | disposition home or self-care (01) | LOC: GPT 08:42 | PROVIDERS: Visit Provider Orthopaedic Surgery | DX: M54.9 Dorsalgia, unspecified (principal) | CPT/HCPCS: 97110; 97112; 97140 ==